=== PATIENT | male | born 1980 | race Caucasian/White ===

== ENCOUNTER 2017-11-11 16:25 | Observation (INO) ==
[2017-11-11 17:07] LABS: Bilirubin,Urine Negative (Negative); Blood,Urine Negative (Negative); Clarity,Urine Clear (Clear); Color,Urine Yellow (Yellow); Glucose,Urine (UA) Normal (Normal); Ketones,Urine Negative (Negative); Leukocyte Esterase,Urine Negative (Negative); Nitrite,Urine Negative (Negative); Protein,Urine Negative (Neg-Trace); Specific Gravity,Urine 1.016 (1.010-1.025); Urobilinogen,Urine Normal (Normal)
--- NOTE | 2017-11-11 17:43 | Emergency Department Note ---
Disposition Clinical Impression: Acute appendicitis Qualifiers: Acute appendicitis type: with localized peritonitis Qualified Code(s): K35.3 - Acute appendicitis with localized peritonitis Disposition: Admitted As Inpatient Condition: Good Time of Disposition: 19:13 General Adult HPI - General Chief complaint: ED Abdominal Pain Stated complaint: abd pain Time Seen by Provider: 11/11/17 16:42 Source: patient, family Limitations: no limitations - History of Present Illness Pain Scale: 6 - Related Data Home Medications Medication Instructions Recorded Confirmed No Known Home Drugs 11/11/17 11/11/17 Allergies Allergy/AdvReac Type Severity Reaction Status Date / Time No Known Allergies Allergy Verified 11/11/17 16:30 Past Medical History - Past Medical History Medical history: Reports: no medical history Psychiatric history: Reports: no psych history - Social History Smoking Status: Never smoker Smokeless Tobacco Status: No Alcohol use: Reports: none Drug use: Reports: none Physical Exam - General Limitations: no limitations General appearance: alert, in no apparent distress Course Vital Signs Temperature 97.9 F 11/11/17 16:31 Pulse Rate 57 11/11/17 16:31 Respiratory Rate 14 11/11/17 16:31 Blood Pressure 126/79 11/11/17 16:31 O2 Sat by Pulse Oximetry 99 11/11/17 16:31 Temperature 98.3 F 11/12/17 07:10 Pulse Rate 46 11/12/17 07:10 Respiratory Rate 16 11/12/17 07:10 Blood Pressure 110/59 11/12/17 07:10 O2 Sat by Pulse Oximetry 98 11/12/17 07:10 Oxygen Delivery Oxygen Delivery Room Air Medical Decision Making - Lab Data Result diagrams: 11/12/17 04:25 11/11/17 20:12 Lab Results 11/11/17 11/11/17 11/11/17 Range/Units 16:46 20:12 20:12 WBC 17.4 H (4.3-11.1) K/mcL RBC 4.83 (4.19-5.50) M/mcL Hgb 14.4 (12.9-16.9) g/dL Hct 42.7 (37.5-50.1) % MCV 88.4 (83.0-100.0) fL MCH 29.8 (28.0-33.3) pg MCHC 33.7 (31.6-35.5) g/dL RDW 13.3 (11.5-14.5) % Plt Count 260 (140-400) K/mcL MPV 9.1 L (9.4-12.4) fL Immature Gran % 0.5 (0-4) % Seg Neutrophils % 83.8 % Lymphocytes % 10.4 % Monocytes % 5.0 % Eosinophils % 0.1 % Basophils % 0.2 % Neutrophils # 14.6 H (1.6-8.9) K/mcL Lymphocytes # 1.8 (0.6-4.6) K/mcL Monocytes # 0.9 (0.0-1.3) K/mcL Eosinophils # 0.0 (0.0-0.6) K/mcL Basophils # 0.0 (0.0-0.2) K/mcL Sodium 135 L (136-145) mEq/L Potassium 4.0 (3.5-5.1) mEq/L Chloride 105 (98-107) mEq/L Carbon Dioxide 25 (23-29) mEq/L BUN 11 (6-20) mg/dL Creatinine 0.85 (0.70-1.30) mg/dL Est GFR ( Amer) > 60 (> 60) Est GFR (Non-Af Amer) > 60 (> 60) BUN/Creatinine Ratio 13 (6-26) Glucose 122 H (70-105) mg/dL Calculated Osmolality 281 (280-300) Calcium 9.2 (8.6-10.3) mg/dL Total Bilirubin (0.3-1.0) mg/dL Direct Bilirubin (0.0-0.2) mg/dL Indirect Bilirubin (0.0-1.2) mg/dL AST (13-39) Units/L ALT (7-52) Units/L Alkaline Phosphatase (34-104) Units/L Serum Total Protein (6.4-8.9) g/dL Albumin (3.5-5.7) g/dL Globulin (2.4-3.5) g/dL Albumin/Globulin Ratio (1.1-2.2) Urine Color Yellow (Yellow) Urine Clarity Clear (Clear) Urine pH 6.0 (5.0-8.0) pH Units Ur Specific [place] 1.016 (1.010-1.025) Urine Protein Negative (Neg-Trace) mg/dL Urine Glucose (UA) Normal (Normal) mg/dL Urine Ketones Negative (Negative) mg/dL Urine Blood Negative (Negative) Urine Nitrite Negative (Negative) Urine Bilirubin Negative (Negative) Urine Urobilinogen Normal (Normal) mg/dL Ur Leukocyte Esterase Negative (Negative) Ur Culture Indicated? NO (NO) 11/11/17 Range/Units 20:12 WBC (4.3-11.1) K/mcL RBC (4.19-5.50) M/mcL Hgb (12.9-16.9) g/dL Hct (37.5-50.1) % MCV (83.0-100.0) fL MCH (28.0-33.3) pg MCHC (31.6-35.5) g/dL RDW (11.5-14.5) % Plt Count (140-400) K/mcL MPV (9.4-12.4) fL Immature Gran % (0-4) % Seg Neutrophils % % Lymphocytes % % Monocytes % % Eosinophils % % Basophils % % Neutrophils # (1.6-8.9) K/mcL Lymphocytes # (0.6-4.6) K/mcL Monocytes # (0.0-1.3) K/mcL Eosinophils # (0.0-0.6) K/mcL Basophils # (0.0-0.2) K/mcL Sodium (136-145) mEq/L Potassium (3.5-5.1) mEq/L Chloride (98-107) mEq/L Carbon Dioxide (23-29) mEq/L BUN (6-20) mg/dL Creatinine (0.70-1.30) mg/dL Est GFR ( Amer) (> 60) Est GFR (Non-Af Amer) (> 60) BUN/Creatinine Ratio (6-26) Glucose (70-105) mg/dL Calculated Osmolality (280-300) Calcium (8.6-10.3) mg/dL Total Bilirubin 0.6 (0.3-1.0) mg/dL Direct Bilirubin 0.1 (0.0-0.2) mg/dL Indirect Bilirubin 0.5 (0.0-1.2) mg/dL AST 24 (13-39) Units/L ALT 42 (7-52) Units/L Alkaline Phosphatase 82 (34-104) Units/L Serum Total Protein 6.8 (6.4-8.9) g/dL Albumin 4.4 (3.5-5.7) g/dL Globulin 2.4 (2.4-3.5) g/dL Albumin/Globulin Ratio 1.8 (1.1-2.2) Urine Color (Yellow) Urine Clarity (Clear) Urine pH (5.0-8.0) pH Units Ur Specific [place] (1.010-1.025) Urine Protein (Neg-Trace) mg/dL Urine Glucose (UA) (Normal) mg/dL Urine Ketones (Negative) mg/dL Urine Blood (Negative) Urine Nitrite (Negative) Urine Bilirubin (Negative) Urine Urobilinogen (Normal) mg/dL Ur Leukocyte Esterase (Negative) Ur Culture Indicated? (NO) Attestation Statement - Attestation Attestation: I examined this patient and my medical decision-making was reviewed with the M[employer]ING MACHINE SET UP OPERATOR/PA/Advanced Practice Nurse/Resident Physician. I agree with the documented findings, disposition and treatment plan as described except to the extent set forth below. The patient presents with right lower quadrant abdominal pain which began this morning and does have a moderate amount of pain localized to McBurney's point on my exam. The patient did have a bowel movement 5:30 this morning. No diarrhea. I did examine the area and there is no testicular pain or swelling , hernias, lesions or lymphadenopathy. The abdomen is normal in appearance. No history of abdominal surgeries. The patient denies any blood in the urine or stool, dysuria or urinary frequency, testicular pain or penile discharge. No fevers. Did have one episode of emesis after he arrived in the emergency department. Social history: He is here with his girlfriend. He stopped smoking 3 days ago. No significant alcohol or drugs [address] scan is pending 1742
--- NOTE | 2017-11-11 17:48 | Emergency Department Note ---
Disposition Clinical Impression: Acute appendicitis Qualifiers: Acute appendicitis type: with localized peritonitis Qualified Code(s): K35.3 - Acute appendicitis with localized peritonitis Disposition: Admitted As Inpatient Condition: Good Time of Disposition: 19:33 Abdominal Pain HPI - General Chief Complaint: ED Abdominal Pain Stated Complaint: abd pain Time Seen by Provider: 11/11/17 16:42 Source: patient, family Mode of arrival: ambulatory Limitations: no limitations Nursing Notes Reviewed: Yes Vital Signs Reviewed: Yes - History of Present Illness HPI Narrative: 37-year-old male otherwise healthy presents with abdominal pain. Reports symptoms started around 9 o'clock this morning. He describes as a sharp cramping sensation that has been intermittent in nature. Location is mostly in the lower abdomen. There is no association with food as he has lost his appetite. He also reports some bloating to his abdomen. He denies any urinary complaints or hematuria. He had episode associated nausea and vomiting here in the emergency department. He is been constipated for the past 24 hours as well. Denies history of abdominal surgeries. Denies any recent illness or fever. Pt Subjective Complaint: abdominal pain Pain Scale: 6 - Related Data Home Medications Medication Instructions Recorded Confirmed No Known Home Drugs 11/11/17 11/11/17 Allergies Allergy/AdvReac Type Severity Reaction Status Date / Time No Known Allergies Allergy Verified 11/11/17 16:30 All systems ED: reviewed and negative except as stated. Review of Systems: As Per HPI Constitutional: Denies: fever, chills ENT ED: Denies: congestion Cardiovascular: Denies: chest pain Respiratory: Denies: cough, dyspnea Gastrointestinal: Reports: abdominal pain, nausea, vomiting, constipation. Denies: diarrhea, melena, hematochezia Genitourinary: Denies: urgency, dysuria, hematuria Musculoskeletal: Denies: back pain, neck pain Integumentary: Denies: rash, abrasion Neurological: Denies: headache Abdominal Pain PMH - Past Medical History Medical history: Reports: no medical history Male Surgical History: Reports: no surgical history Psychiatric history: Reports: no psych history - Social History Smoking status: Never smoker Alcohol use: Reports: none Drug use: Reports: none Physical Exam - General Limitations: no limitations General appearance: alert, in no apparent distress - Head Head exam: atraumatic, normocephalic, normal inspection - Eye Eye exam: Present: normal appearance, PERRL, EOMI. Absent: scleral icterus - ENT ENT exam: normal exam, normal oropharynx, mucous membranes moist - Neck Neck exam: Present: normal inspection, full ROM, trachea midline - Chest Chest inspection: Present: normal inspection, symmetric chest wall rise - Respiratory Respiratory exam: Present: normal lung sounds bilaterally. Absent: respiratory distress, wheezes - Cardiovascular Cardiovascular exam: Present: regular rate, normal rhythm, normal heart sounds - Abdominal Exam Abdominal exam: Present: tenderness, distention (Mild), guarding (mild), normal bowel sounds, Rovsing's sign, tenderness at McBurney's Point. Absent: rebound, rigidity, obturator sign, Rinaldi's sign Abdominal tenderness: Present: RLQ - Extremities Exam Extremities exam: Present: normal inspection, full ROM, normal capillary refill. Absent: tenderness, pedal edema - Back Exam Back exam: Present: normal inspection. Absent: CVA tenderness (R), CVA tenderness (L) - Psychiatric Psychiatric exam: Present: normal affect, normal mood - Skin Skin exam: Present: warm, dry, intact, normal color. Absent: rash, cyanosis, diaphoresis Course Course Narrative: Patient presents with right lower quadrant pain with positive McBurney and Rovsing sign. His abdomen is soft with some mild distention and guarding. Concerning for appendicitis. Will get some basic labs in a CT of the abdomen and pelvis with urinalysis. Patients in agreement with this plan. - Reevaluation(s) Reevaluation #1: CT of the abdomen and pelvis shows a mildly dilated appendix with ivan- appendiceal stranding consistent with appendicitis. Oh evidence of perforation. Basic labs are pending. He continues to have some mild tenderness to the right lower quadrant. No prior history of abdominal surgeries. Pain controlled with the fentanyl. Spoke to the on-call surgeon Dr. Perez who evaluated the patient for further management. No further orders at this time. Review of his labs shows a leukocytosis consistent with appendicitis. Impression is abdominal pain and appendicitis. - Consultations Consultation #1: Patient will be admitted to the surgical service Dr. Perez. Patient will proceed with surgical intervention at this time. Dr. Perez is in the patient' s room evaluating patient at bedside and obtaining surgical consent. Vital Signs Temperature 97.9 F 11/11/17 16:31 Pulse Rate 57 11/11/17 16:31 Respiratory Rate 14 11/11/17 16:31 Blood Pressure 126/79 11/11/17 16:31 O2 Sat by Pulse Oximetry 99 11/11/17 16:31 Temperature 97.9 F 11/11/17 16:36 Pulse Rate 44 11/11/17 19:30 Respiratory Rate 14 11/11/17 20:21 Blood Pressure 111/70 11/11/17 20:21 O2 Sat by Pulse Oximetry 99 11/11/17 19:30 Oxygen Delivery Oxygen Delivery Room Air Abdominal Pain - MDM Narrative Medical decision making narrative: Patient was discussed with my attending physician who agrees with ED management and final disposition. They independently evaluated the patient. Please refer to their attestation to this encounter for additional information. This note was generated by [employer] voice recognition software and as a result grammatical or spelling errors may occur using this program. - Medical Records Medical records reviewed: Yes I reviewed the patient's medical records. - Lab Data Lab results reviewed: Yes I reviewed the patient's lab results. Result diagrams: 11/11/17 20:12 11/11/17 20:12 Lab Results 11/11/17 11/11/17 11/11/17 Range/Units 16:46 20:12 20:12 WBC 17.4 H (4.3-11.1) K/mcL RBC 4.83 (4.19-5.50) M/mcL Hgb 14.4 (12.9-16.9) g/dL Hct 42.7 (37.5-50.1) % MCV 88.4 (83.0-100.0) fL MCH 29.8 (28.0-33.3) pg MCHC 33.7 (31.6-35.5) g/dL RDW 13.3 (11.5-14.5) % Plt Count 260 (140-400) K/mcL MPV 9.1 L (9.4-12.4) fL Immature Gran % 0.5 (0-4) % Seg Neutrophils % 83.8 % Lymphocytes % 10.4 % Monocytes % 5.0 % Eosinophils % 0.1 % Basophils % 0.2 % Neutrophils # 14.6 H (1.6-8.9) K/mcL Lymphocytes # 1.8 (0.6-4.6) K/mcL Monocytes # 0.9 (0.0-1.3) K/mcL Eosinophils # 0.0 (0.0-0.6) K/mcL Basophils # 0.0 (0.0-0.2) K/mcL Sodium 135 L (136-145) mEq/L Potassium 4.0 (3.5-5.1) mEq/L Chloride 105 (98-107) mEq/L Carbon Dioxide 25 (23-29) mEq/L BUN 11 (6-20) mg/dL Creatinine 0.85 (0.70-1.30) mg/dL Est GFR ( Amer) > 60 (> 60) Est GFR (Non-Af Amer) > 60 (> 60) BUN/Creatinine Ratio 13 (6-26) Glucose 122 H (70-105) mg/dL Calculated Osmolality 281 (280-300) Calcium 9.2 (8.6-10.3) mg/dL Total Bilirubin (0.3-1.0) mg/dL Direct Bilirubin (0.0-0.2) mg/dL Indirect Bilirubin (0.0-1.2) mg/dL AST (13-39) Units/L ALT (7-52) Units/L Alkaline Phosphatase (34-104) Units/L Serum Total Protein (6.4-8.9) g/dL Albumin (3.5-5.7) g/dL Globulin (2.4-3.5) g/dL Albumin/Globulin Ratio (1.1-2.2) Urine Color Yellow (Yellow) Urine Clarity Clear (Clear) Urine pH 6.0 (5.0-8.0) pH Units Ur Specific [place] 1.016 (1.010-1.025) Urine Protein Negative (Neg-Trace) mg/dL Urine Glucose (UA) Normal (Normal) mg/dL Urine Ketones Negative (Negative) mg/dL Urine Blood Negative (Negative) Urine Nitrite Negative (Negative) Urine Bilirubin Negative (Negative) Urine Urobilinogen Normal (Normal) mg/dL Ur Leukocyte Esterase Negative (Negative) Ur Culture Indicated? NO (NO) 11/11/17 Range/Units 20:12 WBC (4.3-11.1) K/mcL RBC (4.19-5.50) M/mcL Hgb (12.9-16.9) g/dL Hct (37.5-50.1) % MCV (83.0-100.0) fL MCH (28.0-33.3) pg MCHC (31.6-35.5) g/dL RDW (11.5-14.5) % Plt Count (140-400) K/mcL MPV (9.4-12.4) fL Immature Gran % (0-4) % Seg Neutrophils % % Lymphocytes % % Monocytes % % Eosinophils % % Basophils % % Neutrophils # (1.6-8.9) K/mcL Lymphocytes # (0.6-4.6) K/mcL Monocytes # (0.0-1.3) K/mcL Eosinophils # (0.0-0.6) K/mcL Basophils # (0.0-0.2) K/mcL Sodium (136-145) mEq/L Potassium (3.5-5.1) mEq/L Chloride (98-107) mEq/L Carbon Dioxide (23-29) mEq/L BUN (6-20) mg/dL Creatinine (0.70-1.30) mg/dL Est GFR ( Amer) (> 60) Est GFR (Non-Af Amer) (> 60) BUN/Creatinine Ratio (6-26) Glucose (70-105) mg/dL Calculated Osmolality (280-300) Calcium (8.6-10.3) mg/dL Total Bilirubin 0.6 (0.3-1.0) mg/dL Direct Bilirubin 0.1 (0.0-0.2) mg/dL Indirect Bilirubin 0.5 (0.0-1.2) mg/dL AST 24 (13-39) Units/L ALT 42 (7-52) Units/L Alkaline Phosphatase 82 (34-104) Units/L Serum Total Protein 6.8 (6.4-8.9) g/dL Albumin 4.4 (3.5-5.7) g/dL Globulin 2.4 (2.4-3.5) g/dL Albumin/Globulin Ratio 1.8 (1.1-2.2) Urine Color (Yellow) Urine Clarity (Clear) Urine pH (5.0-8.0) pH Units Ur Specific [place] (1.010-1.025) Urine Protein (Neg-Trace) mg/dL Urine Glucose (UA) (Normal) mg/dL Urine Ketones (Negative) mg/dL Urine Blood (Negative) Urine Nitrite (Negative) Urine Bilirubin (Negative) Urine Urobilinogen (Normal) mg/dL Ur Leukocyte Esterase (Negative) Ur Culture Indicated? (NO) - Radiology Data Radiology results reviewed: Yes I reviewed the patient's radiology results. Abdomen/Pelvis CT 11/11/17 17:37 IMPRESSION: Mildly enlarged appendix with mild periappendiceal stranding compatible with early acute uncomplicated appendicitis. No evidence of perforation. D/ / Yunior Arias MD / Yunior Arias MD Interpreting Provider: Yunior Arias MD
[2017-11-11] MEDS ORDERED: Ondansetron 4 MG/2 ML VIAL IVP ONE ×3 (17:52→21:07)
[2017-11-11] MEDS ORDERED: *HR* FentaNYL (PF) 100 MCG/2 ML VIAL IVP ONE ×2 (17:52→19:31)
[2017-11-11] MEDS ORDERED: Ondansetron 4 MG/2 ML VIAL ONE ×2 (19:38→20:58)
--- NOTE | 2017-11-11 19:39 | Anesthesia Evaluation PreOp ---
Date of Encounter: 11/11/17 Time of Encounter: 19:38 - Past History Planned Operation: Lap. Appy Cardiac History: Denies any Significant Hx Pulmonary History: Smoker [employer] History: Denies Any Significant HX Other Medical History: Denies Any Significant HX Anesthesia History: No Prior Anesthetic Complications, Past Anesthesia (None) Alcohol Use: none Drug use: none Medications and Allergies No Known Home Drugs 11/11/17 [History] 3 Allergy/AdvReac Type Severity Reaction Status Date / Time No Known Allergies Allergy Verified 11/11/17 16:30 - Meds/Allergy Pre-op Review Medications Reviewed: Yes Allergies Reviewed: Yes Beta Blockers on Current Med List: No Anesthesia Results - Labs 11/11/17 20:12 Anesthesia Exam O2 Sat Height 1.75 m Height 1.75 m Weight 90.718 kg Weight 90.718 kg O2 Sat by Pulse Oximetry 99 O2 Sat by Pulse Oximetry 98 O2 Sat by Pulse Oximetry 99 O2 Sat by Pulse Oximetry 99 Vital Signs Temp Pulse Resp BP Pulse Ox 97.9 F 57 14 126/79 99 11/11/17 16:31 11/11/17 16:31 11/11/17 16:31 11/11/17 16:31 11/11/17 16:31 NPO (# of Hours): > 8 hrs Pain Scale: 0 Pain Scale Used: Numeric (1 - 10) - HEENT Pupil (Motor): Pupils equal, EOMI - [employer] LOC: Oriented [employer] Motor: Normal RUE, Normal LUE, Normal RLE, Normal LLE, Normal Face [employer] Sensory: Normal: RUE, LUE, RLE, LLE, Face - Cardiac Rhythm: Regular Murmur: None JVD: No Carotid Bruit: No - Pulmonary Breath Sounds: bilateral Clear Respiratory Effort: Symmetrical Anesthesia Assess/Plan ASA Score: 2 Modified [place] Scale for Level of Consciousness: Cooperative, oriented, and tranquil Anesthetic Plan: General Autologous Blood: Yes Monitoring Plan: Standard Monitors Recovery Plan: PACU
--- NOTE | 2017-11-11 20:23 | General Surg History&Physical ---
Date of Encounter: 11/11/17 Time of Encounter: 19:55 History of Present Illness Chief complaint: Right lower quadrant abdominal pain, nausea and vomiting HPI: Mr. Marroquin is a 37 year old referred for surgical evaluation after presenting to [facility] ED with approximately a 12 hour history of progressive abdominal pain which has now migrated to the right lower quadrant. The patient describes nausea and anorexia but experienced emesis on presentation to the emergency department. The patient is acutely tender in the right lower quadrant with CT abdomen/pelvis demonstrating mild distention/ dilatation of the appendix with mild periappendiceal inflammation consistent with acute appendicitis. This prompted referral to surgical services. Past medical history: None; the patient denies any hypertension diabetes heart disease pulmonary disease or renal disease Surgical history: None Allergies: No known drug allergies Medications: no routine home meds Social history: Patient admits to 1 pack daily for the last 15 years; he describes smoking cessation 3 days ago; he admits to rare alcoholic beverage; he denies any illicit drug use Physical examination: Age-appropriate male lying quietly on the exam table; "it only hurts when I move The patient is 1.75 m tall, 90.72 kg; BMI 29.5 The patient is afebrile at 97.9, pulse 56, respirations 16, blood pressure 122/79. SPO2 on room air 99% Skin: Warm, without obvious jaundice; multiple cutaneous tattoos are evident Lungs: Clear bilaterally; no obvious abdominal pain on deep inspiration Cardiac: Rate is slow but regular; no appreciable murmurs Abdomen: Soft, slightly protuberant with tenderness in the right lower quadrant. There is some referred pain to the right lower quadrant when the lower left quadrant is palpated. Bowel sounds are absent. I did not elicit any rebound. Extremities: No obvious clubbing, cyanosis, or edema. Laboratories: Pending, results not yet available for my review Urinalysis pH 6.0, specific gravity 1.016; no significant chemical or microscopic findings. Impression: 37-year-old male with a 12-14 hour history of progressive abdominal pain. Now located in the right lower quadrant. Clinical findings consistent with acute appendicitis. CT abdomen/pelvis supports this diagnosis Treatment options: Admit, nothing by mouth, IV antibiotics, and IV narcotic analgesics with serial abdominal exams versus appendectomy. The nonsurgical approach risks worsening pain, progressive inflammation, swelling and ultimately perforation. If he responds to IV antibiotics patient is recurrent appendicitis in the future. Surgical risks include hemorrhage, infection, intra -abdominal abscess, injury to adjacent structures such as small intestine, colon , ureters, bladder, etc. The patient is a reasonable candidate for laparoscopic appendectomy but understands an open appendectomy may become necessary. If a normal appendix is encountered it will be removed. The patient has expressed understanding, consent for surgery has been obtained. The patient will be transferred to following completion surgery. Past Med Surg Social Fam HX - Past Medical History Medical history: no medical history Psychiatric history: no psych history - Social History Smoking Status: Never smoker Smokeless Tobacco Status: No Alcohol use: none Drug use: none Medications and Allergies No Known Home Drugs 11/11/17 [History] 3 Allergy/AdvReac Type Severity Reaction Status Date / Time No Known Allergies Allergy Verified 11/11/17 16:30 Review of Systems All systems PM: The remainder of the systems were reviewed and are negative General Surgery Exam Initial Vital Signs Temp Pulse Resp BP Pulse Ox 97.9 F 57 14 126/79 99 11/11/17 16:31 11/11/17 16:31 11/11/17 16:31 11/11/17 16:31 11/11/17 16:31 Results - Labs All other labs normal.
[2017-11-11 20:29] LABS: Basophils % 0.2 %; Eosinophils % 0.1 %; Hematocrit 42.7 % (37.5-50.1); Hemoglobin 14.4 g/dL (12.9-16.9); Immature Granulocytes % 0.5 % (0-4); Lymphocytes # 1.8 K/mcL (0.6-4.6); Lymphocytes % 10.4 %; Mean Corpuscular HGB Conc 33.7 g/dL (31.6-35.5); Mean Corpuscular Hemoglobin 29.8 pg (28.0-33.3); Mean Corpuscular Volume 88.4 fL (83.0-100.0); Mean Platelet Volume 9.1 fL (9.4-12.4); Monocytes # 0.9 K/mcL (0.0-1.3); Neutrophils # 14.6 K/mcL (1.6-8.9); Platelet Count 260 K/mcL (140-400); Red Blood Count 4.83 M/mcL (4.19-5.50); Red Cell Distribution Width 13.3 % (11.5-14.5); Segmented Neutrophils % 83.8 %
[2017-11-11] MEDS ORDERED: Albuterol 2.5 MG/3 ML NEBULIZER ONE (20:29)
[2017-11-11] MEDS ORDERED: CefOXitin 2,000 MG VIAL ONE (20:36)
[2017-11-11 20:46] LABS: Albumin 4.4 g/dL (3.5-5.7); Albumin/Globulin Ratio 1.8 (1.1-2.2); Bilirubin,Direct 0.1 mg/dL (0.0-0.2); Bilirubin,Indirect 0.5 mg/dL (0.0-1.2); Bilirubin,Total 0.6 mg/dL (0.3-1.0); Globulin 2.4 g/dL (2.4-3.5); Total Protein 6.8 g/dL (6.4-8.9)
[2017-11-11 20:47] LABS: BUN/Creatinine Ratio 13 (6-26); Blood Urea Nitrogen 11 mg/dL (6-20); Calcium 9.2 mg/dL (8.6-10.3); Carbon Dioxide 25 mEq/L (23-29); Chloride 105 mEq/L (98-107); Glucose 122 mg/dL (70-105); Osmolality,Calculated 281 (280-300); Sodium 135 mEq/L (136-145); eGFR For African Americans > 60 (> 60); eGFR For Non-African Americans > 60 (> 60)
[2017-11-11] MEDS ORDERED: *HR* Midazolam HCl 2 MG/2 ML VIAL ONE (20:54)
[2017-11-11] MEDS ORDERED: *HR* FentaNYL (PF) 100 MCG/2 ML VIAL ONE (20:54)
[2017-11-11] MEDS ORDERED: *HR* Propofol 200 MG/20 ML VIAL IVP ONE (20:55)
[2017-11-11] MEDS ORDERED: *HR* Succinylcholine 200 MG/10 ML VIAL IVP ONE (20:58)
[2017-11-11] MEDS ORDERED: Dexamethasone 4 MG/ML VIAL ONE (20:58)
[2017-11-11] MEDS ORDERED: *HR* Rocuronium Bromide 50 MG/5 ML VIAL ONE (20:58)
[2017-11-11] MEDS ORDERED: Lidocaine -MPF 2% 2 ML VIAL ONE (20:58)
[2017-11-11] MEDS ORDERED: *HR* EPINEPHrine 30 MG/30 ML MDV ONE (21:06)
[2017-11-11] MEDS ORDERED: *HR* HYDROmorphone (PF) 1 MG/ML SYRINGE IVP PRN (21:07)
[2017-11-11] MEDS ORDERED: *HR* Midazolam HCl 2 MG/2 ML VIAL IVP PRN (21:07)
[2017-11-11] MEDS ORDERED: *HR* Labetalol 100 MG/20 ML MDV IVP PRN (21:07)
[2017-11-11] MEDS ORDERED: *HR* Promethazine 25 MG/ML VIAL IVP PRN (21:07)
[2017-11-11] MEDS ORDERED: Acetaminophen IV 1,000 MG/100 ML INFUS..BTL IVPB ONE (21:07)
[2017-11-11] MEDS ORDERED: Albuterol 2.5 MG/3 ML NEBULIZER IH ONE (21:07)
[2017-11-11] MEDS ORDERED: MORPHINE SUL Oral CONC 10 MG/0.5 ML ORAL.SYG SL PRN (21:07)
[2017-11-11] MEDS ORDERED: Neostigmine Methylsulfate 3 MG/3 ML SYRINGE ONE (22:14)
[2017-11-11] MEDS ORDERED: Ringers Solution, Lactated 500 ML IVC ONE (22:21)
--- NOTE | 2017-11-11 22:29 | Operative Note ---
Date of procedure: 11/11/17 Pre-op diagnosis: acute appendicitis Post-op diagnosis: same Procedure: laparoscopic appendectomy Anesthesia: GETA Local Anesthetics: 0.25% Sensorcaine HCL SubQ (cc) (20 mL (mixture 18mL 0.25% bupivacaine with 2 mL 1 mg per mL epinephrine)) Surgeon: Bryce Perez Was there an inside sales assistant present: No Estimated blood loss (cc): 5 IV fluids (cc): 500 Specimen: appendix Condition: stable Disposition: PACU Procedure in Detail: The patient was brought to the operating room where he was placed supine on the procedure table. The patient was appropriately identified as to person and procedure. The accuracy of this information was confirmed by the patient and procedure team. The patient was then intubated and anesthetized under the supervision of Dr. Joaquín Felix. The abdomen was prepped and draped in usual sterile fashion. Several milliliters of a bupivacaine with epinephrine mixture (18 mL 0.25% bupivacaine with 2 mL 1 mg per mL epinephrine) was infiltrated into the infraumbilical skin. A small transverse incision was made, dissection was carried to the fascia. The fascia was grasped, elevated, and infiltrated with additional bupivacaine with epinephrine. The fascia was then incised. An 11 mm Xcel port was established. The rigid laparoscope was placed within the obturator to visualize passage through the layers of the anterior abdominal wall. Once the abdominal cavity was accessed, obturator was replaced by the rigid laparoscope and the abdomen was insufflated with gaseous carbon dioxide. There was no obvious visible injury from establishing this port. Under direct visualization a 5 mm port was placed in the midline supraumbilical abdominal wall and a 12 mm port was placed in the left lower quadrant, midclavicular line. Both sites were infiltrated with the bupivacaine with epinephrine solution. The cecum was identified and elevated. The appendix was then identified. The mesoappendix was divided at the junction between the appendix and the cecum. The appendix was transected at its junction with the cecum using an Ethicon ATS 45 mm stapler (blue cartridge). The mesoappendix was then transected with a second application of the Ethicon ATS 45 mm stapler using a vascular cartridge. When the appendix was from the surrounding structures it was placed in an endoscopic pouch and extracted through the infraumbilical opening. There were early inflammatory changes consistent with acute appendicitis. There was no perforation. The staple lines were inspected and found to be intact. Hemostasis was intact. The pneumoperitoneum was evacuated and the endoscopic instrumentation removed. The fascia of the infraumbilical opening was closed with interrupted [id number] 0 Vicryl using S retractors. Additional bupivacaine with epinephrine was infiltrated into the fascia. Subcuticular 4-0 Vicryl. The incisions were sealed with Dermabond dermal adhesive. The patient was taken to PACU in stable condition. Needle, sponge, and instrument counts were correct at the close of the case. Total volume of the 0.25% bupivacaine mixed with epinephrine, 20 mL.
[2017-11-11] MEDS ORDERED: Ringers Solution, Lactated 1,000 ML ONE (22:32)
--- NOTE | 2017-11-11 22:48 | Anesthesia Evaluation Post Op ---
Date of Encounter: 11/11/17 Time of Encounter: 22:47 - Vital Signs Vital Signs: Vital Signs/O2 Sat, Most Current Temp Pulse Resp BP Pulse Ox 99.1 F 77 201 110/58 95 11/11/17 22:23 11/11/17 22:43 11/11/17 22:43 11/11/17 22:43 11/11/17 22:43 - Lungs Lungs: Clear Ascult./Percussion - Airway Airway: Non-obstructed - Cardiovascular Regular Rate - Mental Status Mental Status: Alert & Oriented, Answers Appropriately - Pain Pain Scale: 4 Pain Scale used: Numeric (1 - 10) - Nausea Vomiting Nausea Vomiting: Not Present - Hydration Hydration: NPO, Has not voided - Discharge PostOp Status: Transfer Patient to floor
[2017-11-11] MEDS ORDERED: Acetaminophen 325 MG TABLET PO PRN (23:04)
[2017-11-11] MEDS ORDERED: *HR* OxyCODONE Immed Rel 5 MG TABLET PO PRN (23:04)
[2017-11-11] MEDS ORDERED: Ondansetron 4 MG/2 ML VIAL IVP PRN (23:04)
[2017-11-11] MEDS ORDERED: Ringers Solution, Lactated 1,000 ML IVC SCH (23:04)
[2017-11-11] MEDS ORDERED: *HR* OxyCODONE/APAP 5/325 TABLET PO PRN (23:04)
[2017-11-12 04:51] LABS: Basophils % 0.1 %; Hematocrit 39.3 % (37.5-50.1); Hemoglobin 13.1 g/dL (12.9-16.9); Immature Granulocytes % 0.4 % (0-4); Lymphocytes # 1.1 K/mcL (0.6-4.6); Lymphocytes % 6.4 %; Mean Corpuscular HGB Conc 33.3 g/dL (31.6-35.5); Mean Corpuscular Volume 87.1 fL (83.0-100.0); Mean Platelet Volume 9.6 fL (9.4-12.4); Monocytes # 0.6 K/mcL (0.0-1.3); Monocytes % 3.7 %; Platelet Count 230 K/mcL (140-400); Red Blood Count 4.51 M/mcL (4.19-5.50); Red Cell Distribution Width 13.4 % (11.5-14.5); Segmented Neutrophils % 89.4 %
[2017-11-12 11:33] VITALS: BP 101/63
--- NOTE | 2017-11-12 13:22 | General Surgery Progress Note ---
Date of Encounter: 11/12/17 Time of Encounter: 13:19 Subjective Patient reports: feels better, tolerating a regular diet Narrative: General Surgery - POD #1 Patient feeling much improved; acute right lower quadrant abdominal pain resolved. Patient has remained afebrile, currently 98.1, pulse 62, respirations 16, blood pressure 101/63 Lungs: Clear bilaterally; no abdominal pain on deep inspiration Abdomen: Soft with minimal persistent tenderness in the right lower quadrant as expected; port sites clean and dry. Active bowel sounds. Patient tolerating regular diet with no nausea/ vomiting. Postop labs: White count 16.8 (17.4 on presentation); neutrophilia increased from 14.6 to 15.0 - likely response to surgery hemoglobin is 13.1, hematocrit 39.3 Impression: Postoperative day 1, status post laparoscopic appendectomy for acute appendicitis Patient feeling much improved; acceptable status for discharge home Objective Vital Signs - Last 8 Hours Temp Pulse Resp BP Pulse Ox 11/12/17 11:18 98.1 F 62 16 101/63 96 11/12/17 07:10 98.3 F 46 16 110/59 98 Intake and Output 11/11/17 11/12/17 11/12/17 23:59 07:59 15:59 Intake Total 500 / 500 480 / 480 360 / 360 Output Total 5 / 5 0 / 0 300 / 300 Balance 495 / 495 480 / 480 60 / 60 Intake: IV Fluids 500 / 500 Lactated Ringers 500 ML @ 1000 500 / 500 mls/hr IVC .Q30M ONE Rx#: [id number] Oral 480 / 480 360 / 360 Output: Urine 0 / 0 300 / 300 Estimated Blood Loss 5 / 5 Other: Meal Breakfast Percent of Meal Consumed 75% # Voids 2 Weight 91.5 kg Patient Weight 11/12/17 23:59 Weight 91.5 kg - Labs 11/12/17 04:25 11/11/17 20:12 - VTE Documentation of Mechanical Device: Intermittent pneumatic compression device Consult Discharge Plan - Plan Referrals: Bryce Perez MD [Non-Partnered Physician] -
--- NOTE | 2017-11-12 13:27 | Discharge Summary ---
Outpatient Proc Discharge Plan - Plan Additional Instructions: Regular diet Activity as tolerated; lifting limited to less than 20 pounds Patient may shower, wash incisions with soap and water Tylenol, ibuprofen, Motrin, Advil, etc. as needed for pain Prescription for Percocet 5/325, #10, one every 6 hours as needed for pain not relieved by [id number] medications Outpatient follow-up, 11/18/2017; patient to call office to make appointment Prescriptions: OxyCODONE/APAP 5/325 [Percocet 5/325 MG] 1 each PO Q6H PRN 2 Days #10 tablet PRN Reason: Pain Home Medications: Acetaminophen [Tylenol] 650 mg PO Q6HR PRN tablet 11/12/17 [Rx] OxyCODONE/APAP 5/325 [Percocet 5/325 MG] 1 each PO Q6H PRN 2 Days #10 tablet 10/27 [Rx]
== END 2017-11-12 14:59 | disposition home or self-care (01) ==
LOC: EMEROO 16:25 → 3ANU 16:25
PROVIDERS: ADMIT Surgery; ATTEND Surgery